=== PATIENT | female | born 1945 | race Caucasian/White ===

== ENCOUNTER 2024-06-14 10:14 | Day surgery (SDC) | payer OTHER ==
[~2024-06-14] VITALS: Ht 162.6 cm; Wt 59.2 kg
[~2024-06-14 10:14] MED LIST: CEFAZOLIN SOD 2 GM in D5W 50 ML IV ONE; metroNIDAZOLE 500 mg/NS 100 ML PREMIX IV ONE
[2024-06-14] MEDS ORDERED: DEXAMETHASONE SOD PHOSPHATE 4 MG/ML VIAL ONE (13:46)
[2024-06-14] MEDS ORDERED: ONDANSETRON HCL 4 MG/2 ML VIAL ONE (13:46)
[2024-06-14] MEDS ORDERED: SUCCINYLCHOLINE CHLORIDE 20 MG/ML(QUELICIN) ONE (13:46)
[2024-06-14] MEDS ORDERED: MIDAZOLAM HCL 2 MG/2 ML VIAL (VERSED) ONE (13:46)
[2024-06-14] MEDS ORDERED: SEVOFLURANE 15 MIN GAS INH ONE (13:46)
[2024-06-14] MEDS ORDERED: KETOROLAC TROMETHAMINE 30 MG VIAL IVP PRN (14:30)
[2024-06-14] MEDS ORDERED: METOCLOPRAMIDE HCL 10 MG/2 ML VIAL IVP PRN (14:30)
[2024-06-14] MEDS ORDERED: HYDROmorphone 1 MG/ML INJ. CARTRIDGE IVP PRN ×2 (14:30)
[2024-06-14] MEDS ORDERED: FLUMAZENIL 0.1 MG/ML IVP PRN (14:30)
[2024-06-14] MEDS ORDERED: DIPHENHYDRAMINE INJ 50 MG/ML VIAL IVP PRN (14:30)
[2024-06-14] MEDS ORDERED: ONDANSETRON HCL 4 MG/2 ML VIAL IVP PRN ×2 (14:30→21:15)
[2024-06-14] MEDS ORDERED: MIDAZOLAM HCL 5 MG/5 ML VIAL IVP PRN (14:30)
[2024-06-14] MEDS ORDERED: ACETAMINOPHEN I.V. 1000 MG 100 ML IV ONE (14:40)
[2024-06-14] MEDS ORDERED: TRAZ-250 PO (21:13)
[2024-06-14] MEDS ORDERED: QUET50TA PO (21:13)
[2024-06-14] MEDS ORDERED: SENN-302 (21:13)
[2024-06-14] MEDS ORDERED: HYDROcodone/ACETAMIN 5-325 MG TAB (NORCO/ VICODIN) PO PRN (21:15)
[2024-06-14 21:30] VITALS: BP_SYST 117; PULSE 66; RESP 18; TEMP 98.2; O2SAT 94
[2024-06-14 21:39] VITALS: BP_SYST 117; PULSE 66; RESP 18
[2024-06-14 21:55] VITALS: O2SAT 97
[2024-06-15 00:10] VITALS: BP_SYST 116; PULSE 64; RESP 18; TEMP 97.5; O2SAT 97
[2024-06-15 04:00] VITALS: TEMP 97.8
[2024-06-15 07:45] VITALS: BP_SYST 119; PULSE 70; RESP 16; TEMP 97.4; O2SAT 98
[2024-06-15 12:08] VITALS: BP_SYST 109; PULSE 65; RESP 16; TEMP 97.7; O2SAT 93
[2024-06-15 13:14] VITALS: BP_SYST 109; PULSE 65; RESP 14; TEMP 97.7
== END 2024-06-15 14:15 | disposition home or self-care (01) ==
LOC: SDS 10:14 → SMU 10:17 → SDS 06-15 14:15
PROVIDERS: ATTEND Surgery
DX: K62.3 Rectal prolapse (principal); F41.9 Anxiety disorder, unspecified; M19.90 Unspecified osteoarthritis, unspecified site; Z87.891 Personal history of nicotine dependence; Z80.51 Family history of malignant neoplasm of kidney
CPT/HCPCS: 87081; 71046; 45130; 88305; J0690; J1100; J3490; J2250; J2405; J0330; J7060; J0131